=== PATIENT | male | born 1970 | race Caucasian/White ===

== ENCOUNTER 2024-09-29 05:49 | Day surgery (SDC) | payer OTHER ==
[2024-09-16 09:08] LABS: URINE APPEARANCE Clear; URINE BILIRRUBIN Negative (NEGATIVE); URINE BLOOD Negative; URINE COLOR Yellow; URINE GLUCOSE Negative (NEGATIVE); URINE LEUKOCYTE Negative; URINE NITRATE Negative; URINE PROTEIN Trace (NEGATIVE); URINE UROBILINOGEN 0.2 E.U./dl
[2024-09-16 09:12] LABS: URINE BACTERIA 7.5 uL (0.0-1933); URINE RBC 10.8 uL (0.0-20.8); URINE WBC 2.3 uL (0.0-23.2)
[2024-09-16 09:19] LABS: HEMATOCRIT 49.7 % (39.0-48.0); MEAN CELL VOLUME 87.7 fL (80.0-100.00); MEAN CORPUSCULAR HGB CONC 34.2 g/dl (32.0-36.0); PLATELET COUNT 356 K/uL (150-450); RED BLOOD COUNT 5.66 M/uL (4.00-6.00)
[2024-09-16 09:37] LABS: URINE EPITHELIAL CELLS 1.3 uL (0.0-38.8); URINE KETONE 80 (NEGATIVE)
[2024-09-16 09:50] LABS: INR 1.08; PARTIAL THROMBOPLASTIN TIME 26.7 SECONDS (22.0-34.0); PROTHROMBIN TIME 11.7 SECONDS (9.0-11.5)
[2024-09-16 09:57] LABS: ALBUMIN 3.8 gm/dL (3.4-5.0); BILIRUBIN TOTAL 0.53 mg/dL (0.3-1.2); CALCIUM 10.2 mg/dL (8.5-10.1); CREATININE SERUM 1.22 mg/dL (0.70-1.30); GFR 61.67; GLOBULINA 3.7 G/DL (2.4-3.5); POTASSIUM 5.44 mEq/L (3.5-5.1); TOTAL PROTEIN 7.5 gm/dL (6.4-8.2)
[~2024-09-29 05:49] MED LIST: CELEBREX200MG PO; SKELAXIN800 MG PO
[2024-09-29] MEDS ORDERED: BUPIVACAINE HCL 30 ML VIAL IJ ONE (11:00)
[2024-09-29] MEDS ORDERED: CEFAZOLIN SODIUM 1,000 MG VIAL IV ONE (11:00)
[2024-09-29] MEDS ORDERED: CEFAZOLIN SODIUM 1,000 MG VIAL IV NR (12:30)
[2024-09-29] MEDS ORDERED: FAMOTIDINE/PF 20 MG/2 ML VIAL IV NR (12:30)
[2024-09-29] MEDS ORDERED: MORPHINE SULFATE 4 MG/ML VIAL IV ONE ×2 (12:45→13:15)
== END 2024-09-29 14:15 | disposition home or self-care (01) ==
LOC: SURH 05:49 → CIR.AMB 05:49 → O/R 05:49 → EDSTATUS 07:00 → SURH 07:00 → O/R 14:15 → CIR.AMB 14:15
PROVIDERS: ATTEND Specialist
DX: K80.10 Calculus of gallbladder with chronic cholecystitis without obstruction (principal)

== ENCOUNTER → 2025-03-23 | Emergency (ER) | payer OTHER ==
[~2025-03-23] VITALS: Ht 172.7 cm; Wt 81.6 kg
== END | disposition left against medical advice (07) ==
LOC: ER 20:33
DX: Z53.21 Procedure and treatment not carried out due to patient leaving prior to being seen by health care provider (principal)